=== PATIENT | male | born 1960 | race Caucasian/White ===

== ENCOUNTER 2019-07-28 18:19 | Emergency (ER) | payer MEDICAID ==
[~2019-07-28] VITALS: Ht 165.1 cm; Wt 69.2 kg
[~2019-07-28 18:19] MED LIST: ATEN-104 PO; ATOR40TA78 PO; AZAT50TA20 PO; HYDR25TA6 PO; LEVO50TA5 PO; LORA10TA62 PO; PRED5TAB19 PO; TAMS0.4C2 PO; TRAZ50TA66 PO
--- NOTE | 2019-07-28 19:40 | NUR ---
TO CT PER LEON
[2019-07-28] MEDS ORDERED: PRED10TA PO (19:46)
[2019-07-28] MEDS ORDERED: HYDR-826 PO (19:46)
[2019-07-28] MEDS ORDERED: AMOX-291 PO (19:46)
[2019-07-28] MEDS ORDERED: PERM60CR17 TP (19:47)
[2019-07-28 21:17] VITALS: BP 108/64
== END 2019-07-28 21:27 | disposition home or self-care (01) ==
LOC: ED 20:36
DX: S00.83XA Contusion of other part of head, initial encounter (principal); M79.606 Pain in leg, unspecified; H92.02 Otalgia, left ear; R51 Headache; I10 Essential (primary) hypertension; Z86.39 Personal history of other endocrine, nutritional and metabolic disease; Y04.8XXA Assault by other bodily force, initial encounter; Y93.89 Activity, other specified; Y92.098 Other place in other non-institutional residence as the place of occurrence of the external cause; Y99.8 Other external cause status
CPT/HCPCS: 70450; 99284

== ENCOUNTER 2019-08-13 14:08 | Emergency (ER) | payer MEDICAID ==
[~2019-08-13] VITALS: Ht 165.1 cm; Wt 65.2 kg
[~2019-08-13 14:08] MED LIST changes: +AMOX-291 PO; +HYDR-826 PO; +PERM60CR17 TP; +PRED10TA PO
[2019-08-13 14:09] VITALS: BP 132/82
--- NOTE | 2019-08-13 14:21 | NUR ---
FIRST CONTACT WITH PT. PT C/O LEFT FOOT PAIN RADIATING UP LEFT LEG X 2 WEEKS AND PT C/O "BURNING" EPIGASTRIC PAIN "AFTER I EAT AND WHEN I'M TRYING TO SLEEP". PT'S AOX4. RESPS EVEN AND UNLABORED.
--- NOTE | 2019-08-13 14:36 | NUR ---
PT IN XRAY AT THIS TIME.
--- NOTE | 2019-08-13 15:52 | NUR ---
THIS RN CALLED [facility] AND [facility] WILL DELIVER SOON.
--- NOTE | 2019-08-13 16:34 | NUR ---
Patient given discharge instructions and they have confirmed that they understand the instructions. Patient ambulatory with steady gait.
== END 2019-08-13 16:35 | disposition home or self-care (01) ==
LOC: ED 16:07
DX: G89.11 Acute pain due to trauma (principal); M79.672 Pain in left foot; I10 Essential (primary) hypertension
CPT/HCPCS: 99283